=== PATIENT | male | born 1990 | race Two or more races ===

== ENCOUNTER 2025-03-24 06:14 | Day surgery (SDC) | payer BC, SELFPAY ==
[2025-03-19 10:20] VITALS: BMI 28.6
--- NOTE | 2025-03-19 10:26 | EKG_ITS ---
[facility] (Formerly [facility]) Test Date: 2025-03-19 Pat Name: CHINO MENDOZA Department: Room: - Gender: Male Sane Nurse: ELIZABETH : 1990 Requested By: Dmitry Reynolds Order Number: [id number] Reading MD: Dmitry Reynolds Measurements Intervals [place] Rate: 65 P: 22 MO: 124 QRS: 83 QRSD: 106 T: 65 QT: 358 QTc: 374 Interpretive Statements SINUS RHYTHM INDETERMINATE AXIS ATYPICAL ECG No previous ECG available for comparison /[id number]
[2025-03-19 11:17] LABS: Basophils # (Auto) 0.1 Thou/mm3 (0.0-0.2); Basophils % (Auto) 2 % (0-2.5); Eosinophils # (Auto) 0.3 Thou/mm3 (0.0-0.5); Eosinophils % (Auto) 5 % (0-10); Hematocrit 50.9 % (41.0-53.0); Hemoglobin 18.6 g/dL (13.5-16.0); Immature Granulocytes Auto 0.03 Thou/mm3 (0.00-0.00); Lymphocytes # (Auto) 1.9 Thou/mm3 (1.0-4.8); Lymphocytes % (Auto) 31 % (10-50); Mean Corpuscular HGB Conc 36.5 g/dl (31.0-37.0); Mean Corpuscular Hemoglobin 32.3 pg (25.0-35.0); Mean Corpuscular Volume 89 fL (80-100); Monocytes # (Auto) 0.5 Thou/mm3 (0.0-0.8); Monocytes % (Auto) 9 % (0-12); Neutrophils # (Auto) 3.3 Thou/mm3 (1.8-7.7); Neutrophils % (Auto) 53 % (37-80); Nucleated Red Blood Cell # 0.00 Thou/mm3 (0.00-0.00); Nucleated Red Blood Cell % 0 /100 WBC (0); Platelet Count 241 Thou/mm3 (140-440); RDW Standard Deviation 39.8 fL (35.1-43.9); Red Blood Count 5.75 Miln/mm3 (4.50-5.90); White Blood Count 6.2 Thou/mm3 (3.8-10.6)
[2025-03-19 11:29] LABS: Alanine Aminotransferase 155 U/L (10-49); Albumin, Serum 4.5 gm/dL (3.5-5.0); Albumin/Globulin Ratio 1.7 (1.2-2.2); Alkaline Phosphatase 91 U/L (46-116); Anion Gap 6 (7-16); Aspartate Amino Transferase 56 U/L (0-34); BUN/Creatinine Ratio 7 Ratio (12-20); Bilirubin,Total 0.9 mg/dL (0.3-1.2); Blood Urea Nitrogen 7 mg/dL (9-23); Calcium 9.2 mg/dL (8.3-10.6); Calcium (Corrected) 9.2 mg/dL (8.5-10.1); Carbon Dioxide 28.3 mMol/L (20.0-31.0); Chloride 106 mMol/L (98-107); Creatinine (Component) 1.0 mg/dL (0.6-1.3); Estimated Creatinine Clearance 111.8 mL/min (>60); Globulin 2.7 gm/dL (2.3-3.5); Glucose 90 mg/dL (74-106); INR 1.0 (0.9-1.3); Osmolality,Calculated 277 (275-295); Partial Thromboplastin Time 26.8 Seconds (22.0-36.0); Potassium 4.5 mMol/L (3.4-5.1); Prothrombin Time 11.4 Seconds (9.0-12.2); Sodium 140 mMol/L (136-145); Total Protein 7.2 gm/dL (5.7-8.2); eGFR > 60 See Note
[2025-03-24] VITALS (7 sets, daily range): BP systolic 120–154; BP diastolic 77–102; PULSE 67–87; RESP 16–20; TEMP 36.3–36.5; O2SAT 96–100; BMI 28.4
[2025-03-24] MEDS: RINGERS LACTATED 1000 ML 1,000 ML 20 ML IV (06:39)
--- NOTE | 2025-03-24 10:55 | SUR.PHASEI ---
105 Patient arrived to recovery resting comfortable in [facility], on oxygen 6L via oxy mask with an oral airway in place, breathing unlabored, vital signs stable, dressing intact to bilateral groin; dissolvable sutures, adaptic, gauze, medipore tape, no bleeding noted, report received from Andrew WRIGHT and Dr. Rodriguez
--- NOTE | 2025-03-24 11:17 | PD.SUROPNT ---
Date of Procedure 03/24/25 Pre Op Diagnosis Bilateral inguinal hernia right larger than the left Post Op Diagnosis Same, indirect in type Procedure Repair of the right and left indirect inguinal hernia with ligation of the sac and placement of a 2 x 4 Marlex mesh on the floor of the inguinal canal. Findings Patient had a sac on both sides but the one on the right side was too large. Patient also had a patulous internal ring making it difficult cover with the any mesh. Procedure Description After the patient was given endotracheal anesthesia is lower abdomen was prepped with chloreprep solution and draped. Standard right groin incision was made in the external oblique was reached. Incision was made over the external oblique and the patient was found to have a large sac next to the cord structures. The cord structures were encircled around a [place] drain and the sac was easily . It was opened and was found to contain omentum. Patient had a large opening in this hernial sac in the mouth of the internal ring was wide. A portion of the omentum was forming wall of the sac making it difficult to reduce. Therefore I suture-ligated this with 2-0 chromic and divided. I suture ligated this with 2-0 chromic and then divided. Another 2-0 chromic suture ligation was used to prevent any slippage of the previous suture. Then I palpated the floor of the inguinal canal which appeared to be strong. I placed a 2 x 4 Marlex mesh and attached it medially to the pubic tubercle and laterally it was tucked underneath the external oblique after crossing the cord.. Because of the patulous internal ring I have to stretch this mesh to the shelving edge inferiorly and internal oblique superiorly. At the end it was encircled around the cord structures and I placed one stitch of Prolene lateral to the cord structures. Then external oblique was closed with running 2-0 Vicryl and subcutaneous tissues was approximated with 30 plain I injected half percent Marcaine with epinephrine for analgesia and the skin was closed with 4-0 Monocryl. Dressing was applied with Adaptic and 4 x 4 and the patient tolerated the procedure well and left operating room in stable condition. On the left side the same hernia was found and it was treated as follows: Standard left t groin incision was made in the external oblique was reached. Incision was made over the external oblique and the patient was found to have a large sac next to the cord structures. The cord structures were encircled around a [place] drain and the sac was easily . It was opened and was found to contain omentum. Patient had a large opening in this hernial sac in the mouth of the internal ring was wide. I suture ligated this with 2-0 chromic and then divided. Another 2-0 chromic suture ligation was used to prevent any slippage of the previous suture. Then I palpated the floor of the inguinal canal which appeared to be bulging but no definite large direct hernia was felt.. I placed a 2 x 4 Marlex mesh and attached it medially to the pubic tubercle and laterally it was tucked underneath the external oblique after crossing the cord structures. I placed one stitch of Prolene lateral to the cord structures. Then external oblique was closed with running 2-0 Vicryl and subcutaneous tissues was approximated with 30 plain I injected half percent Marcaine with epinephrine for analgesia and the skin was closed with 4-0 Monocryl. Dressing was applied with Adaptic and 4 x 4 and the patient tolerated the procedure well and left operating room in stable condition. Anesthesia GETA Implants 2 x 4 Marlex mesh on both sides Pathology / specimen None IVF Infused 2,000 Estimated Blood Loss 40 Condition Stable Disposition PACU Surgeon Ilir Cottrell MD Surgical Staff Operation Date: 03/24/25 08:00 Case Staff Anesthesiologist: Fadi Rodriguez RN First Assistant: Kurtis Moreira
--- NOTE | 2025-03-24 12:02 | SUR.PHASEII ---
1202 Patient meets discharge criteria from recovery, awake and alert, breathing unlabored, vital signs stable, denies pain at rest- shared pain with movement, dressing intact; no bleeding noted, eating ice chips; denies nausea, assisted with dressing into his clothing by this manual writer and his , discharge instructions given to patient and patients , signed discharge instructions. Patient given all his belongings prior to discharge, transported via wheelchair and left in a private vehicle.
== END 2025-03-24 12:02 | disposition home or self-care (01) ==
PROVIDERS: PCP Family Medicine; Referring Provider Surgery; Visit Provider Surgery
PROC: (CPT 49505; principal; 2025-03-24 08:00)
DX: K40.20 Bilateral inguinal hernia, without obstruction or gangrene, not specified as recurrent (principal); Z01.810 Encounter for preprocedural cardiovascular examination
CPT/HCPCS: 49505; 36415; 80053; 85025; 85610; 85730; 93005; A4217; A4649; C1781; J0131; J1100; J1885; J2250; J2405; J2704; J3010; J3490; J7120; A9270